=== PATIENT | female | born 1970 | race African-American/Black ===

== ENCOUNTER 2017-01-19 09:08 | Emergency (ER) | payer SELFPAY ==
[~2017-01-19] VITALS: Ht 172.7 cm; Wt 82.0 kg
[2017-01-19 09:22] VITALS: BP 102/69
== END 2017-01-19 16:04 | disposition left against medical advice (07) ==
LOC: ER 16:04
DX: M54.2 Cervicalgia (principal); M54.9 Dorsalgia, unspecified; Z53.21 Procedure and treatment not carried out due to patient leaving prior to being seen by health care provider